=== PATIENT | male | born 1955 ===

== ENCOUNTER → 2016-07-05 | Outpatient (CLI) | payer OTHER | LOC: SBRMNEURO 21:00 | PROVIDERS: ATTEND Psychiatry & Neurology Sleep Medicine | DX: G47.33 Obstructive sleep apnea (adult) (pediatric) (principal); G47.61 Periodic limb movement disorder ==

== ENCOUNTER → 2018-09-26 | Outpatient (CLI) | payer OTHER | LOC: GIMAGING 11:29 ==